=== PATIENT | male | born 1950 | race Caucasian/White ===

== ENCOUNTER 2016-06-28 06:08 | Inpatient (IN) | payer OTHER ==
[~2016-06-28] VITALS: Ht 172.7 cm; Wt 88.8 kg
[2016-06-28] MEDS ORDERED: OPTIRAY 350 100 ML VIAL HMH IV ONE (06:09)
[2016-06-28] MEDS ORDERED: ONDANSETRON 4 MG VIAL ONE (07:23)
[2016-06-28] MEDS ORDERED: DILAUDID 1 MG/ML AMP ONE ×3 (07:23→12:26)
[2016-06-28] MEDS ORDERED: SODIUM CHLORIDE 0.9% 1,000 ML ONE (07:24)
[2016-06-28] MEDS ORDERED: LACT RINGERS 1,000 ML IV SCH (11:40)
[2016-06-28] MEDS ORDERED: SALINE FLUSH 10 ML FLUSH PRN (11:40)
[2016-06-28] MEDS ORDERED: MORPHINE 2 MG/ML SYR IV PRN (11:40)
[2016-06-28] MEDS ORDERED: ONDANSETRON 4 MG VIAL IV PRN (11:40)
[2016-06-28] MEDS ORDERED: HURRICAINE SPRAY TOPICAL ONE (12:25)
[2016-06-28] MEDS ORDERED: ED METRONIDAZOLE IV 100 ML IV ONE (12:26)
[2016-06-28 14:45] VITALS: BP_SYST 93; BP_SYST 99; RESP 18; TEMP 97.6; Ht 172.7 cm; Wt 88.8 kg
[2016-06-28] MEDS ORDERED: DUONEB INH SCH (15:00)
[2016-06-28 15:14] VITALS: RESP 18
[2016-06-28] MEDS: PIPERACIL/TAZO 3.375GM/50ML 50 ML IV SCH ×2 (15:23→22:29)
[2016-06-28] MEDS: FAMOTIDINE 20 MG INJ IV SCH ×2 (15:26→22:30)
[2016-06-28] MEDS: NICOTINE 21 MG/24 HR TRANSDERM SCH (15:47)
[2016-06-28] MEDS: ENOXAPARIN 40 MG/0.4 ML SYR SUBQ SCH (15:49)
[2016-06-28] MEDS ORDERED: CHLORASEPTIC 180 ML BTL PO PRN (17:45)
[2016-06-28] MEDS ORDERED: MISSING DOSE XX ONE ×2 (18:10→22:20)
[2016-06-28] MEDS: DUONEB INH SCH (18:37)
[2016-06-28 19:45] VITALS: BP_SYST 105; RESP 20; TEMP 98.3
[2016-06-28] MEDS: SALINE FLUSH 10 ML FLUSH SCH (22:30)
[2016-06-29 00:17] VITALS: BP_SYST 108; RESP 20; TEMP 98.1
[2016-06-29] MEDS: PIPERACIL/TAZO 3.375GM/50ML 50 ML IV SCH ×2 (04:14→12:46)
[2016-06-29 04:52] VITALS: BP_SYST 148; RESP 20; TEMP 98.4
[2016-06-29] MEDS ORDERED: SODIUM CHLORIDE 0.9% FLUSH BAG 500 ML IV SCH (06:00)
[2016-06-29] MEDS: DUONEB INH SCH ×2 (06:25→11:42)
[2016-06-29 07:44] VITALS: BP_SYST 146; RESP 20; TEMP 98
[2016-06-29] MEDS: FAMOTIDINE 20 MG INJ IV SCH (08:32)
[2016-06-29] MEDS: SALINE FLUSH 10 ML FLUSH SCH (08:32)
[2016-06-29] MEDS ORDERED: MISSING DOSE XX ONE (08:35)
[2016-06-29] MEDS: ENOXAPARIN 40 MG/0.4 ML SYR SUBQ SCH (09:19)
[2016-06-29] MEDS: NICOTINE 21 MG/24 HR TRANSDERM SCH (09:20)
[2016-06-29 11:26] VITALS: BP_SYST 160; RESP 18; TEMP 99
[2016-06-29] MEDS ORDERED: FLECAINIDE 100 MG TAB PO SCH (12:45)
[2016-06-29] MEDS ORDERED: ATENOLOL 50 MG TAB PO SCH (12:45)
[2016-06-29 15:23] VITALS: BP_SYST 157; RESP 18; TEMP 98.7
[2016-06-29 16:46] VITALS: BP_SYST 157; RESP 18; TEMP 98.7
== END 2016-06-29 17:00 | disposition home or self-care (01) | DRG 388 ==
LOC: ENRESERVTM → ENRESERVDT → ER 06:08 → ENPENDDIS 12:03 → EMR 12:03 → 4THW 14:02
PROVIDERS: ADMIT Internal Medicine; ATTEND Internal Medicine
DX: K56.60 Unspecified intestinal obstruction (principal); J18.9 Pneumonia, unspecified organism; E87.1 Hypo-osmolality and hyponatremia; C64.2 Malignant neoplasm of left kidney, except renal pelvis; J98.11 Atelectasis; J44.0 Chronic obstructive pulmonary disease with (acute) lower respiratory infection; I16.0 Hypertensive urgency; F17.210 Nicotine dependence, cigarettes, uncomplicated; Z79.82 Long term (current) use of aspirin; K21.9 Gastro-esophageal reflux disease without esophagitis; Z86.718 Personal history of other venous thrombosis and embolism; K57.90 Diverticulosis of intestine, part unspecified, without perforation or abscess without bleeding; D18.03 Hemangioma of intra-abdominal structures; N20.0 Calculus of kidney
CPT/HCPCS: 36415; 71020; 74020; 74177; 80048; 80053; 81001; 83036; 83605; 83690; 84439; 84443; 85025; 87040; 94640; 94799; 96361; 96365; 96375; 96376; 99223; 99238